=== PATIENT | female | born 2000 | race Caucasian/White ===

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

== ENCOUNTER 2023-08-18 15:04 | Emergency (ER) | payer BC, SELFPAY ==
[2023-08-18 15:14] VITALS: BP 116/65; PULSE 80; RESP 16; TEMP 36.7
--- NOTE | 2023-08-18 15:31 | ED.SKABFB ---
HPI - Skin/Abscess/Foreign Bdy General Chief complaint: Extremity Problem,Nontraumatic Stated complaint: INJURED FINGERNAIL Time Seen by Provider: 08/18/23 15:26 Source: patient and RN notes reviewed Mode of arrival: ambulatory Limitations: no limitations History of Present Illness HPI narrative: Patient presents today complaining of mild redness to the cuticle area of her left 4th finger. She initially injured this finger nail 3-4 weeks ago when it was bent backwards. At this time she had very long acrylic nails and did not subsequently have it removed. When it was time to have a new set placed she removed the fingernail and noted that her own fingernail was green in color 2-3 days ago as well as redness to the cuticle area. She wanted to make sure she did not have an infection. Related Data Home Medications Medication Instructions Recorded Confirmed bupropion HCl 150 mg 24 hr tablet, 150 mg PO DAILY 08/18/23 08/18/23 extended release medroxyprogesterone 150 mg/mL 150 mg IM 12 08/18/23 08/18/23 intramuscular suspension venlafaxine 37.5 mg tablet 37.5 mg PO BID 08/18/23 08/18/23 Allergies Allergy/AdvReac Type Severity Reaction Status Date / Time AMOXICILLIN TRIHYDRATE Allergy Mild Unknown Uncoded 08/18/23 15:24 POTASSIUM CLAVULANATE Allergy Mild Unknown Uncoded 08/18/23 15:24 Review of Systems Review of Systems: CONSTITUTIONAL: Denies body aches, fever, chills, or sweats. EYES: Denies visual changes, redness, or discharge. ENT: Denies rhinorrhea, congestion, sore throat, or otalgia. CARDIOVASCULAR: Denies chest pain, palpitations, or edema. RESPIRATORY: Denies cough or dyspnea. GASTROINTESTINAL: Denies abdominal pain, nausea, vomiting, or diarrhea. GENITOURINARY: Denies dysuria or hematuria. SKIN: + redness to finger MUSCULOSKELETAL: Denies back pain, joint pain, or myalgia. NEUROLOGIC: Denies headache, numbness, tingling, or weakness. PSYCH: Denies depression or anxiety. PMFSH Comments At time of signature, I have reviewed and agree with nursing past medical, surgical, social and family history unless otherwise noted. Please see nursing chart for further information. There is no relevant family history pertinent to the presenting complaint Exam Narrative: GENERAL: Well-appearing, well-nourished, and in no acute distress. HEAD: Normocephalic, atraumatic. EYES: EOMI. No redness or drainage. Conjunctivae normal. ENT: Mucous membranes pink and moist. NECK: Normal AROM. CHEST: No respiratory distress. EXTREMITIES: Normal range of motion. No edema. SKIN: Warm, dry, no rash. Capillary refill normal. Left 4th finger: the distal 2/3 of the fingernail is superficially green in color, but likely due to damage to the nail as opposed to infection. The nail bed in this area is not adhered to the nail. The proximal 1/3 of the fingernail appears to be growing out normally. The skin at the base of the nail appears slightly erythematous and scantly edematous as well as mildly tender to touch. The remainder of the finger is nontender. No areas of fluctuance. Distal sensation intact. Capillary refill normal. Full ROM of the finger. NEURO: No focal deficits. Alert and oriented x3. Gait steady. PSYCH: Normal affect. No signs of depression or anxiety. Course Course Level of Care: Express Care Visit Vital Signs Vital signs: Vital Signs Temperature 98.1 F 08/18/23 15:14 Pulse Rate 80 08/18/23 15:14 Respiratory Rate 16 08/18/23 15:14 Blood Pressure 116/65 08/18/23 15:14 Temperature 98.1 F 08/18/23 15:14 Pulse Rate 80 08/18/23 15:14 Respiratory Rate 16 08/18/23 15:14 Blood Pressure 116/65 08/18/23 15:14 Oxygen Delivery Room Air 08/18/23 15:15 Reviewed MDM - Skin/Abscess/Foreign Bdy MDM Narrative Medical decision making narrative: The mild erythema at the base of the fingernail may be due to some mild cellulitis. Prescription for Bactrim sent to pharmacy. T
== END 2023-08-18 15:42 | disposition home or self-care (01) ==
PROVIDERS: Emergency Provider Nurse Practitioner; PCP Physician Assistant
DX: L03.012 Cellulitis of left finger (principal)
CPT/HCPCS: 99213; G0463

== ENCOUNTER 2023-09-06 15:30 | Emergency (ER) | payer BC, SELFPAY ==
--- NOTE | 2023-09-06 15:32 | ED.WOUNDLAC ---
HPI - Wound/Laceration General Chief Complaint: Wound/Laceration Stated Complaint: Gash on Arm Time Seen by Provider: 09/06/23 15:31 Source: patient Mode of arrival: ambulatory Limitations: no limitations History of Present Illness HPI narrative: Ly is a 22-year-old female patient presenting to the clinic today with complaints self-harming behavior to the left upper arm. She reports she cut herself 3 times on Wednesday night of last week. Went to [facility] ER yesterday and had an evaluation and they gave her a topical antibiotic ointment and updated her tetanus. She denies any suicidal ideation or thoughts of self-harm at this time Related Data Allergies Allergy/AdvReac Type Severity Reaction Status Date / Time AMOXICILLIN TRIHYDRATE Allergy Mild Unknown Uncoded 09/06/23 15:36 POTASSIUM CLAVULANATE Allergy Mild Unknown Uncoded 09/06/23 15:36 Review of Systems Review of Systems: Pertinent positives per HPI. Patient denies any fever, chills, rash, headache, visual changes, dizziness, cough, runny nose, sore throat, shortness of breath, chest pain, palpitations, nausea, vomiting, diarrhea, constipation, abdominal pain, or any urinary issues. PMFSH Comments At the time of my signature, I reviewed and agree with the nursing past medical, surgical, social, and family history. There is no relevant family history pertinent to the patient complaint. Exam Narrative: General: Well-developed, well nourished, in no apparent distress Head: Normocephalic, atraumatic. Cardio: Regular rate and rhythm, s1 and s2 normal, no murmur appreciated. Resp: Clear to auscultation bilaterally, no rhonchi, rales, wheezing or rubs. Integumentary: [place], warm, and dry, 3 lacerations measuring approximately 3cm, 4cm, and 5cm long. Moderate gaping noted with adipose tissue exposed. No redness or swelling, tender to palpation, yellowish discharge noted on the [place] with removal of bandage. Course Course Emergency Course: Portions of this record may have been created with voice recognition software. Level of Care: Express Care Visit Vital Signs Vital signs: Vital signs reviewed Procedures Laceration Laceration 1: Date: 09/06/23 Site: upper extremity Side (If applicable): left Size (cm): 3 (3cm, 4cm, and 5cm) Description: linear Depth: simple, single layer Pre-repair: irrigated ====== Skin Level ====== Skin layer closed with: steri strips ====== Subcutaneous Layer ====== ====== Muscle Layer ====== ====== Tendon Layer ====== Dressing: Verbal consent obtained for laceration repair. Risk and benefits explained and patient voiced understanding. Area was cleansed with antiseptic soap and half-inch Steri-Strips were applied to bring wound edges together-well approximated. Patient tolerated procedure well. Sterile dressing applied. MDM - Wound/Laceration MDM Narrative Medical decision making narrative: At the time of visit patient is resting comfortably on the exam table. Patient appears to be nontoxic. Plan: Steri-Strips were applied to the wounds to help with healing/closure. Place the patient on Keflex. Tetanus shot was up-to-date in the hospital yesterday. Supportive measures were discussed with the patient and they voiced understanding discharge instructions and agrees to treatment plan. Return precautions reviewed. Patient denies any suicidal or homicidal ideation in the clinic today. Differential Diagnosis Differential diagnosis: Likely laceration, abscess, abrasion and avulsion of skin Discharge Plan Discharge Clinical Impression: Laceration, Self-harming behavior Patient Disposition: Home, Self-Care Condition: Stable Instructions: Antibiotic Form, Laceration (ED), Steristrips (ED) Additional Instructions: Take Keflex as prescribed Leave Steri-Strips in place until they fall off on their own. Leave bandage on for 24 hours then m
[2023-09-06 15:34] VITALS: BP 134/67; PULSE 104; RESP 16; TEMP 37.2; O2SAT 100
== END 2023-09-06 16:10 | disposition home or self-care (01) ==
PROVIDERS: Emergency Provider Nurse Practitioner Family; PCP Physician Assistant
DX: S41.112A Laceration without foreign body of left upper arm, initial encounter (principal); X78.9XXA Intentional self-harm by unspecified sharp object, initial encounter
CPT/HCPCS: 99213; G0463

== ENCOUNTER 2023-10-16 12:44 | Emergency (ER) | payer BC, SELFPAY ==
[2023-10-16 12:54] VITALS: BP 108/73; PULSE 105; RESP 16; TEMP 36.6; O2SAT 100
--- NOTE | 2023-10-16 13:14 | ED.GENADULT ---
HPI - General Adult General Chief complaint: Upper Respiratory Infection Stated complaint: SINUS CONGESTION/NEEDS WORK NOTE Source: patient, RN notes reviewed and old records reviewed Mode of arrival: ambulatory Limitations: no limitations History of Present Illness HPI narrative: 23-year-old female presents to [facility] with complete cough, congestion, sore throat this started 3-4 days ago. Patient taking Tylenol with no relief. Patient denies chest pain, shortness of breath, dizziness, weakness Related Data Home Medications Medication Instructions Recorded Confirmed bupropion HCl 150 mg 24 hr tablet, mg PO 10/16/23 extended release cariprazine 1.5 mg capsule mg 10/16/23 (Vraylar) dextroamphetamine-amphetamine ER PO 10/16/23 20 mg 24hr capsule,extend release Allergies Allergy/AdvReac Type Severity Reaction Status Date / Time AMOXICILLIN TRIHYDRATE Allergy Mild Unknown Uncoded 10/16/23 12:53 POTASSIUM CLAVULANATE Allergy Mild Unknown Uncoded 10/16/23 12:53 Review of Systems Constitutional: Constitutional: Reports no additional constitutional complaints, Denies body ache(s), Denies chills, Denies fatigue, Denies fever(s) and Denies headache(s) Eyes: Eyes: Reports no additional eye complaints and Denies blurry vision ENT: Reports system reviewed and no additional complaints, except as documented, Denies vertigo, Denies dizziness, Denies ear discharge, Denies otalgia, Denies facial pain, Denies headache(s), Reports nasal congestion, Reports nasal discharge, Denies sinus pain, Reports sinus pressure and Reports sore throat Cardiovascular: Cardiovascular: Reports no additional cardiovascular complaints, Denies chest pain, Denies chest pain at rest, Denies rapid heart rate and Denies dyspnea Respiratory: Respiratory: Reports no additional respiratory complaints, Reports chest congestion, Reports cough, Denies pain on inspiration, Denies pain with cough and Denies dyspnea Gastrointestinal: Gastrointestinal: Denies abdominal pain, Denies diarrhea, Denies nausea and Denies vomiting Integumentary/Breasts: Skin/Breast: Denies rash Neurologic: Reports system reviewed and no additional complaints, except as documented, Denies vertigo, Denies dizziness and Denies headache(s) Endocrine: Endocrine: Denies fatigue PMFSH Comments At the time of my signature, I reviewed and agree with the nursing past medical, surgical, social, and family history. There is no relevant family history pertinent to the patient complaint. Exam Const: General: cooperative, healthy appearing, no acute distress and well nourished Nutritional Appearance: well nourished Orientation/consciousness: patient oriented x3 Limitations: no limitations HENMT: Head: normal to inspection and normocephalic Ears: external ears normal, TM's normal bilaterally, EAC's normal and mastoids normal Face/Nose/Sinus: Normal nasal mucous membranes and turbinates present, normal facial exam and sinuses nontender Face and sinus: normal facial exam Mouth: Yes Normal oral and palatal mucosa present, Yes oropharynx normal and Yes moist mucous membranes Throat: tonsils normal, uvula midline, normal tonsils, no peritonsillar masses, posterior oropharynx abnormal erythema, postnasal drainage and no uvular edema Eyes: General: appearance normal, both eyes and all related structures Sclera: sclerae normal Pupils: Equal, round and reactive pupils present Resp: Effort & Inspection: normal respiratory effort, able to speak in complete sentences, no audible wheezes, no cough, no respiratory distress and no retractions Auscultation: clear to auscultation bilaterally, no crackles, no rales, no rhonchi and no wheezes Cardio: Rate: regular rate Rhythm: regular rhythm Skin: General skin exam: normal color and no rashes or lesions noted Neuro: General: patient oriented x3 Cranial nerves: Yes Equal, round and reactive pupils present Psych: Appearance: grossly normal Mental S
== END 2023-10-16 13:21 | disposition home or self-care (01) ==
PROVIDERS: Emergency Provider Registered Nurse; PCP Physician Assistant
DX: B34.9 Viral infection, unspecified (principal); Z20.822 Contact with and (suspected) exposure to COVID-19
CPT/HCPCS: 87081; 87426; 87804; 87880; 99213; G0463